=== PATIENT | male | born 1990 | race Caucasian/White ===

== ENCOUNTER 2018-09-26 20:35 | Emergency (ER) | payer OTHER ==
[~2018-09-26] VITALS: Ht 185.4 cm; Wt 66.7 kg
[2018-09-26 20:54] VITALS: BP 145/89; Ht 185.4 cm; Wt 66.7 kg
== END 2018-09-26 22:04 | disposition home or self-care (01) ==
LOC: ED 20:35
DX: S60.511A Abrasion of right hand, initial encounter (principal); W45.8XXA Other foreign body or object entering through skin, initial encounter; Y93.89 Activity, other specified; Y92.89 Other specified places as the place of occurrence of the external cause; Y99.8 Other external cause status
CPT/HCPCS: 90715